=== PATIENT | female | born 1955 | race Caucasian/White ===

== ENCOUNTER → 2016-05-24 | Outpatient (CLI) | payer OTHER | END | disposition home or self-care (01) | LOC: NUC 10:30 | DX: M17.12 Unilateral primary osteoarthritis, left knee (principal); M17.11 Unilateral primary osteoarthritis, right knee; T84.498A Other mechanical complication of other internal orthopedic devices, implants and grafts, initial encounter; Z96.651 Presence of right artificial knee joint; M19.041 Primary osteoarthritis, right hand; M19.042 Primary osteoarthritis, left hand; M19.072 Primary osteoarthritis, left ankle and foot; M19.071 Primary osteoarthritis, right ankle and foot | CPT/HCPCS: 78315; A9503 ==

== ENCOUNTER → 2016-07-17 | Outpatient (CLI) | payer OTHER | END | disposition home or self-care (01) | DX: M17.11 Unilateral primary osteoarthritis, right knee (principal); R26.2 Difficulty in walking, not elsewhere classified; M62.81 Muscle weakness (generalized); M25.661 Stiffness of right knee, not elsewhere classified; Z96.651 Presence of right artificial knee joint | CPT/HCPCS: 97110 GP; 97150 GO; 97161 GP; 97165 GO ==

== ENCOUNTER 2016-08-20 09:30 | Inpatient (IN) | payer OTHER ==
[~2016-08-20] VITALS: Ht 157.5 cm; Wt 77.7 kg
[~2016-08-20 09:30] MED LIST: ADVAIR 100/501 DISK IH; ALLEGRA ALLERG180 MG PO; CALCIUM + D3 E1 EACH PO; CELEBREX200 MG PO; CENTRUM SILVER1 EAC4 PO; COLACE100 MG PO; FIBER SELECT G1 EACH PO; FLONASE ALLERG9.9 ML BOTH NARES; IRON325 M1 PO; LOFIBRA,TRIGLI160 MG PO; LOVAZA1 GM PO; MEVACOR20 MG PO; NEXIUM20 MG PO; PAXIL20 MG PO; PROAIR RESPICL90 MCG IH; TENORMIN25 MG PO; TYLENOL ARTHRI650 MG PO
[2016-08-20] MEDS ORDERED: SINGULAIR10 MG PO (11:28)
[2016-08-20 11:29] VITALS: BP 141/80
[2016-08-20 18:38] VITALS: BP 146/73
[2016-08-20 18:39] LABS: HEMATOCRIT 41.5 % (36.0-46.0); MCH 28.8 PG (29.0-34.0); MCHC 33.3 G/DL (30.0-36.0); MCV 86.6 FL (83-99); MEAN PLAT.VOLUME 9.4 uM^3 (9.5-12.4); PLATELET COUNT 262 K/uL (156-360); RBC DIS.WIDTH-CV 12.7 % (11.8-14.6); RBC DIS.WIDTH-SD 40.2 % (39-53); RED BLOOD COUNT 4.79 M/uL (3.80-5.20)
[2016-08-20 18:46] LABS: WHITE BLOOD COUNT 14.7 K/uL (4.1-10.2)
[2016-08-20 20:03] VITALS: BP 136/65
[2016-08-20 23:47] VITALS: BP 138/81
[2016-08-21 03:51] VITALS: BP 138/82
[2016-08-21 05:33] LABS: HEMATOCRIT 37.9 % (36.0-46.0); MCV 86.9 FL (83-99)
[2016-08-21 05:52] LABS: ANION GAP 7 MEQ/L (2-14); CHLORIDE 100 MEQ/L (99-109); GFR ESTIMATE (CALCULATED) > 59 mL/min/; GLUCOSE 109 mg/dL (70-99); POTASSIUM 4.2 MEQ/L (3.7-5.4); SAMPLE HEMOLYSIS CHECK 0; SAMPLE ICTERIC CHECK 0; SAMPLE LIPEMIA CHECK 0; SODIUM 135 MEQ/L (136-147); UREA NITROGEN (BUN) 12 mg/dL (9-23)
[2016-08-21 08:00] VITALS: BP 123/68
[2016-08-21] MEDS ORDERED: LOVENOX40 MG/0.4 SC (10:18)
[2016-08-21] MEDS ORDERED: ENDOCET 5-3251 EACH PO (10:21)
[2016-08-21 15:55] VITALS: BP 136/73
[2016-08-21 20:19] VITALS: BP 157/70
[2016-08-22 00:28] VITALS: BP 127/74
[2016-08-22 04:00] VITALS: BP 146/81
[2016-08-22 05:36] LABS: HEMATOCRIT 34.8 % (36.0-46.0); MCV 83.7 FL (83-99)
[2016-08-22 07:55] VITALS: BP 127/76
[2016-08-22 11:04] VITALS: BP 154/73
[2016-08-22 15:14] VITALS: BP 111/69
== END 2016-08-22 15:45 | DRG 468 ==
LOC: 2SOUTH 09:30 → 3WEST 18:07
PROVIDERS: Orthopaedic Surgery
DX: T84.032A Mechanical loosening of internal right knee prosthetic joint, initial encounter (principal); I10 Essential (primary) hypertension; J45.909 Unspecified asthma, uncomplicated; M19.90 Unspecified osteoarthritis, unspecified site; F41.9 Anxiety disorder, unspecified; F32.9 Major depressive disorder, single episode, unspecified; K21.9 Gastro-esophageal reflux disease without esophagitis; K76.0 Fatty (change of) liver, not elsewhere classified; R00.2 Palpitations
CPT/HCPCS: 73560; 80048; 85014; 85018; 85027; 94799; J0131; J0690; J1100; J1650; J2250; J2405; J3010; J7030; J7050; J7120

== ENCOUNTER 2017-11-24 10:02 | Emergency (ER) | payer OTHER ==
[~2017-11-24] VITALS: Ht 157.5 cm; Wt 80.6 kg
[~2017-11-24 10:02] MED LIST changes: +ENDOCET 5-3251 EACH PO; +LOVENOX40 MG/0.4 SC; +SINGULAIR10 MG PO
[2017-11-24 10:33] LABS: HEMATOCRIT 43.6 % (36.0-46.0); HEMOGLOBIN 15.3 G/DL (11.9-15.5); MCH 29.2 PG (29.0-34.0); MCHC 35.1 G/DL (30.0-36.0); MCV 83.2 FL (83-99); PLATELET COUNT 305 K/uL (156-360); RBC DIS.WIDTH-CV 12.8 % (11.8-14.6); RBC DIS.WIDTH-SD 38.7 % (39-53); RED BLOOD COUNT 5.24 M/uL (3.80-5.20); WHITE BLOOD COUNT 10.4 K/uL (4.1-10.2)
[2017-11-24 10:41] LABS: ALBUMIN 4.1 g/dL (3.2-4.8); CHLORIDE 101 mEq/L (99-109); SODIUM 137 mEq/L (136-147)
[2017-11-24 10:43] LABS: GLUCOSE 125 mg/dL (70-99); TOTAL PROTEIN 7.4 g/dL (6.4-8.3)
[2017-11-24 10:45] LABS: TOTAL BILIRUBIN 0.6 mg/dL (0.0-1.0)
[2017-11-24 10:47] LABS: ALKALINE PHOSPHATASE 77 IU/L (3-129); CREATININE 0.7 mg/dL (0.6-1.3); GFR ESTIMATE (CALCULATED) > 59 mL/min/
[2017-11-24 10:48] LABS: UREA NITROGEN (BUN) 9 mg/dL (9-23)
[2017-11-24 10:49] LABS: AST (GOT) 43 IU/L (2-34)
[2017-11-24 10:50] LABS: ALT (GPT) 40 IU/L (3-49)
[2017-11-24 12:30] LABS: APPEARANCE SL.HAZY ((CLEAR)); BILIRUBIN NEGATIVE; BLOOD LARGE; COLOR AMBER ((YELLOW)); GLUCOSE (STRIP) NEGATIVE; KETONES NEGATIVE; LEUKOCYTES NEGATIVE; NITRITE NEGATIVE; PROTEIN (STRIP) 100; SPECIFIC GRAVITY 1.015 (1.000-1.030); UROBILINOGEN 0.2 MG/DL (0.2-1.0)
[2017-11-24 12:49] LABS: BACTERIA NONE SEEN /HPF; EPITHELIAL CELLS NONE SEEN /HPF; MUCUS NONE SEEN /LPF; RED BLOOD CELLS TNTC /HPF (0-5); UCUL ADDED? YES; WHITE BLOOD CELLS NONE SEEN /HPF (0-5)
[2017-11-24 13:09] LABS: INTER. NORMALIZED RATIO 1.1; TOTAL PROTEIN 7.1 g/dL (6.4-8.3)
[2017-11-24 13:11] LABS: TOTAL BILIRUBIN 0.5 mg/dL (0.0-1.0)
[2017-11-24 13:12] LABS: ALKALINE PHOSPHATASE 77 IU/L (3-129); PTT 30.7 SEC (25-37)
[2017-11-24 13:15] LABS: ALT (GPT) 42 IU/L (3-49); AST (GOT) 43 IU/L (2-34); DIRECT BILIRUBIN 0.3 mg/dL (0.0-0.3)
[2017-11-24 13:16] LABS: LIPASE 20 U/L (1.0-51.0)
[2017-11-24 13:18] LABS: TROP-I INTERPRETATION NEGATIVE; TROPONIN-I < 0.01 ng/mL (0.0-0.30)
[2017-11-24] MEDS ORDERED: MIRALAX255 GM PO (15:13)
[2017-11-24] MEDS ORDERED: FLEET ENEMA-AD118 ML PR (15:13)
[2017-11-24 16:30] VITALS: BP 138/76
== END 2017-11-24 16:31 | disposition home or self-care (01) ==
LOC: EME 10:02
PROVIDERS: Emergency Medicine
DX: K59.00 Constipation, unspecified (principal); J45.909 Unspecified asthma, uncomplicated; I10 Essential (primary) hypertension; F41.9 Anxiety disorder, unspecified; Z90.710 Acquired absence of both cervix and uterus; Z90.49 Acquired absence of other specified parts of digestive tract; Z98.890 Other specified postprocedural states; Z88.8 Allergy status to other drugs, medicaments and biological substances
CPT/HCPCS: 74177; 80053; 80076; 81003; 83605; 83690; 84484; 85027; 85610; 85730; 87086; 99281; 99285